=== PATIENT | male | born 1945 | race Caucasian/White ===

== ENCOUNTER 2022-03-23 09:34 | Emergency (ER) | payer OTHER ==
--- NOTE | 2022-03-23 11:27 | EDPHYS ---
Physician Documentation [facility] Name: Caleb Patterson Age: 77 yrs Sex: Male : 1945 Arrival Date: 03/23/2022 Time: 09:35 Bed 10 Private MD: Kemal Moses HPI: 03/23 11:18 This 77 yrs old Male presents to ER via Ambulatory with complaints of Staple jonathan Removal. 11:18 The patient has bronson on the face. Previous treatment: The patient was initially jonathan treated 7 day(s) ago. Sutures/bronson progress: The patient has no c/o's. The wound is well-healing with no redness, swelling, discharge, or dehiscence reported. The patient has not experienced similar symptoms in the past. Historical: - Allergies: 10:11 No Known Allergies; ld1 - PMHx: 10:11 depressive disorder; Leaky heart valves; PTSD; ld1 - PSHx: 10:11 None; ld1 - Immunization history:: Adult Immunizations up to date, Client reports receiving the 2nd dose of the Covid vaccine. - Social history:: Smoking status: Patient denies any tobacco usage or history of. Patient/guardian denies using alcohol. ROS: 11:19 Constitutional: Negative for fever, chills, and weight loss, Eyes: Negative for injury, jonathan pain, redness, and discharge, ENT: Negative for injury, pain, and discharge, Neck: Negative for injury, pain, and swelling, Cardiovascular: Negative for chest pain, palpitations, and edema, Respiratory: Negative for shortness of breath, cough, wheezing, and pleuritic chest pain, Abdomen/GI: Negative for abdominal pain, nausea, vomiting, diarrhea, and constipation, Back: Negative for injury and pain, : Negative for injury, bleeding, discharge, and swelling, MS/Extremity: Negative for injury and deformity, Neuro: Negative for headache, weakness, numbness, tingling, and seizure, Psych: Negative for depression, anxiety, suicide ideation, homicidal ideation, and hallucinations, Allergy/Immunology: Negative for hives, rash, and allergies, Endocrine: Negative for neck swelling, polydipsia, polyuria, polyphagia, and marked weight changes, Hematologic/Lymphatic: Negative for swollen nodes, abnormal bleeding, and unusual bruising. 11:19 Skin: Positive for laceration(s). Exam: 11:19 Constitutional: This is a well developed, well nourished patient who is awake, alert, jonathan and in no acute distress. Eyes: Pupils equal round and reactive to light, extra-ocular motions intact. Lids and lashes normal. Conjunctiva and sclera are non-icteric and not injected. Cornea within normal limits. Periorbital areas with no swelling, redness, or edema. ENT: Nares patent. No nasal discharge, no septal abnormalities noted. Tympanic membranes are normal and external auditory canals are clear. Oropharynx with no redness, swelling, or masses, exudates, or evidence of obstruction, uvula midline. Mucous membranes moist. Neck: Trachea midline, no thyromegaly or masses palpated, and no cervical lymphadenopathy. Supple, full range of motion without nuchal rigidity, or vertebral point tenderness. No Meningismus. Chest/axilla: Normal chest wall appearance and motion. Nontender with no deformity. No lesions are appreciated. Cardiovascular: Regular rate and rhythm with a normal S1 and S2. No gallops, murmurs, or rubs. Normal PMI, no JVD. No pulse deficits. Respiratory: Lungs have equal breath sounds bilaterally, clear to auscultation and percussion. No rales, rhonchi or wheezes noted. No increased work of breathing, no retractions or nasal flaring. Abdomen/GI: Soft, non-tender, with normal bowel sounds. No distension or tympany. No guarding or rebound. No evidence of tenderness throughout. Back: No spinal tenderness. No costovertebral tenderness. Full range of motion. Male : Normal genitalia with no discharge or lesions. Skin: Warm, dry with normal turgor. Normal color with no rashes, no lesions, and no evidence of cellulitis. MS/ Extremity: Pulses equal, no cyanosis. Neurovascular intact. Full, normal range of motion. Neuro: Awake and alert, GCS 15, oriented to person, place, time, and situation. Cranial nerves II-XII grossly intact. Motor strength 5/5 in all extremities. Sensory grossly intact. Cerebellar exam normal. Normal gait. Psych: Awake, alert, with orientation to person, place and time. Behavior, mood, and affect are within normal limits. 11:19 Head/face: Noted is a laceration(s), that is deep, of the top of head. Vital Signs: 10:11 BP 111 / 60; Pulse 58; Resp 18; Temp 97.6(TE); Pulse Ox 100% on R/A; Weight 70.31 kg; ld1 Height 5 ft. 11 in. (180.34 cm); Pain 0/10; 10:11 Body Mass Index 21.62 (70.31 kg, 180.34 cm) ld1 Procedures: 11:19 Suture/Staple removal: Removed 5 bronson, from top of head and face, site appears well jonathan healed, Patient tolerated. MDM: 09:39 Patient medically screened. jonathan 11:25 Data reviewed: vital signs, nurses notes. Data interpreted: travel guide: not jonathan applicable for this patient encounter. rate is 58 beats/min, rhythm is regular, Pulse oximetry: on room air. Counseling: I had a detailed discussion with the patient and/or guardian regarding: the historical points, exam findings, and any diagnostic results supporting the discharge/admit diagnosis, the need for outpatient follow up, for definitive care, a family practitioner. Administered Medications: No medications were administered Disposition Summary: 03/23/22 11:27 Discharge Ordered Location: Home jonathan Problem: new jonathan Symptoms: have improved jonathan Condition: Stable jonathan Diagnosis - Encounter for removal of sutures - bronson jonathan Followup: jonathan - With: Private Physician - When: 5 - 6 days - Reason: Recheck today's complaints, Continuance of care, Re-evaluation by your physician Discharge Instructions: - Discharge Summary Sheet jonathan - Sutures, Bronson, or Adhesive Wound Closure jonathan - Suture Removal, Care After jonathan Forms: - Medication Reconciliation Form jonathan - Thank You Letter jonathan - Antibiotic Education jonathan - Prescription Opioid Use jonathan Signatures: Kemal Tapia MD MD cha Dibbern, Lauren, RN RN ld1
--- NOTE | 2022-03-23 11:27 | ER ---
Nurse's Notes [facility] Name: Caleb Patterson Age: 77 yrs Sex: Male : 1945 Arrival Date: 03/23/2022 Time: 09:35 Bed 10 Private MD: Diagnosis: Encounter for removal of sutures-bronson Presentation: 03/23 10:11 Chief complaint: Patient states: Bronson removal to forehead. Pt received bronson 7 ld1 days ago. Coronavirus screen: At this time, the client does not indicate any symptoms associated with coronavirus-19. Ebola Screen: No symptoms or risks identified at this time. Initial Sepsis Screen: Does the patient meet any 2 criteria? No. Patient's initial sepsis screen is negative. Does the patient have a suspected source of infection? No. Patient's initial sepsis screen is negative. Risk Assessment: Do you want to hurt yourself or someone else? Patient reports no desire to harm self or others. Onset of symptoms was March 23, 2022. 10:11 Method Of Arrival: Ambulatory ld1 10:11 Acuity: MAYA 4 ld1 Triage Assessment: 10:11 General: Appears in no apparent distress. comfortable, Behavior is calm, cooperative, ld1 appropriate for age. Pain: Denies pain. EENT: No signs and/or symptoms were reported regarding the EENT system. Neuro: Level of Consciousness is awake, alert, obeys commands, Oriented to person, place, time, situation. Cardiovascular: Capillary refill < 3 seconds Patient's skin is warm and dry. Respiratory: Airway is patent Respiratory effort is even, unlabored. Historical: - Allergies: 10:11 No Known Allergies; ld1 - PMHx: 10:11 depressive disorder; Leaky heart valves; PTSD; ld1 - PSHx: 10:11 None; ld1 - Immunization history:: Adult Immunizations up to date, Client reports receiving the 2nd dose of the Covid vaccine. - Social history:: Smoking status: Patient denies any tobacco usage or history of. Patient/guardian denies using alcohol. Screenin:11 Abuse screen: Denies threats or abuse. Denies injuries from another. Nutritional ss screening: No deficits noted. Tuberculosis screening: Never had TB. Fall Risk None identified. Assessment: 10:11 General: Appears in no apparent distress. comfortable, Behavior is calm, cooperative. ss Neuro: Level of Consciousness is awake, alert, obeys commands, Oriented to person, place, time, situation. Cardiovascular: Capillary refill < 3 seconds is brisk in bilateral fingers. Respiratory: Airway is patent Respiratory effort is even, unlabored, Respiratory pattern is regular, symmetrical. Derm: Skin is intact, is healthy with good turgor, Skin is dry, Skin is pink, warm \T\ dry. normal. Vital Signs: 10:11 BP 111 / 60; Pulse 58; Resp 18; Temp 97.6(TE); Pulse Ox 100% on R/A; Weight 70.31 kg; ld1 Height 5 ft. 11 in. (180.34 cm); Pain 0/10; 10:11 Body Mass Index 21.62 (70.31 kg, 180.34 cm) ld1 ED Course: 09:35 Patient arrived in ED. am2 09:39 Kemal Tapia MD is Attending Physician. [facility] 10:11 Triage completed. ld1 10:11 Arm band placed on right wrist. ld1 10:11 Patient has correct armband on for positive identification. Bed in low position. ss 11:57 Citlali Guerrero, RN is Primary Nurse. ss 11:57 No provider procedures requiring assistance completed. Patient did not have IV access ss during this emergency room visit. Removal of Removed sutures from top of head Suture site is well healed Patient tolerated well. Administered Medications: No medications were administered Medication: 10:11 VIS not applicable for this client. ss Outcome: 11:27 Discharge ordered by . [facility] 11:57 Discharged to home ambulatory. ss 11:57 Condition: good 11:57 Discharge instructions given to patient, Instructed on discharge instructions, follow up and referral plans. Demonstrated understanding of instructions, follow-up care. 11:59 Patient left the ED. ss Signatures: Kemal Tapia MD MD cha Smirch, Shelby, TY RN Bijal Pettit 2 Shirley Shen RN RN ld1
[2022-03-23 12:05] VITALS: BP 111/60; TEMP 97.6; O2SAT 100
== END 2022-03-23 11:59 | disposition home or self-care (01) ==
LOC: ER 09:34
DX: Z48.02 Encounter for removal of sutures (principal)
CPT/HCPCS: 99281